=== PATIENT | male | born 1965 | race American Indian/Alaskan Native ===

== ENCOUNTER 2020-10-07 01:07 | Emergency (ER) | payer SELFPAY ==
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
[2020-10-07 03:13] LABS: Bilirubin,Urine NEG (Negative); Blood,Urine NEG (Negative); Color,Urine Yellow (Yellow); Mucus,Urine 1+ /HPF; Protein,Urine <15 mg/dL mg/dL (Negative); Urobilinogen,Urine < 2.0 mg/dL (<2.0)
[2020-10-07 03:18] LABS: Hematocrit 47.6 % (35.5-45.6); Hemoglobin 16.1 gm/dl (11.8-15.2); Mean Corpuscular HGB Conc 34 % (32-34); Mean Corpuscular Volume 87 fl (84-94); Platelet Count 225 K/mm3 (140-440); Red Blood Count 5.49 M/mm3 (3.65-5.03); Red Cell Distribution Width 15.1 % (13.2-15.2)
[2020-10-07 03:18] LABS: Amphetamine Screen,Urine PRESUMPTIVE NEGATIVE; Benzodiazepines Screen,Urine PRESUMPTIVE NEGATIVE; Cannabinoid Screen,Urine PRESUMPTIVE POSITIVE; Cocaine Screen,Urine PRESUMPTIVE NEGATIVE; Methadone Screen,Urine PRESUMPTIVE NEGATIVE; Opiate Screen,Urine PRESUMPTIVE NEGATIVE
[2020-10-07 03:20] LABS: BUN/Creatinine Ratio 13; Blood Urea Nitrogen 12 mg/dL (9-20); Calcium 9.4 mg/dL (8.4-10.2); Hemolysis Index 3
[2020-10-07 06:38] LABS: Basophils % (Manual) 0 % (0.0-1.8); Total Cells Counted 100
[2020-10-07 06:39] LABS: Anisocytosis Few; Platelet Estimate Consistent w Auto
[2020-10-07 09:20] VITALS: BP 123/58
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
== END 2020-10-07 13:25 | disposition home or self-care (01) ==
LOC: EEVIPCON 01:07 → ED 01:07
DX: F32.9 Major depressive disorder, single episode, unspecified (principal); F41.9 Anxiety disorder, unspecified; F17.200 Nicotine dependence, unspecified, uncomplicated; Z98.890 Other specified postprocedural states
CPT/HCPCS: 36415; 80048; 80307; 80320; 81001; 85007; 85025; G0480

== ENCOUNTER 2020-10-23 20:56 | Emergency (ER) | payer MEDICAID ==
[2020-10-23 21:55] VITALS: BP 108/75
--- NOTE | 2020-10-24 00:49 | Emergency Department Report ---
ED General Adult HPI - General Chief complaint: Extremity Problem,Nontraumatic Stated complaint: PAINFUL LEFT TOE INFECTION Time Seen by Provider: 10/23/20 23:21 Source: patient Mode of arrival: Ambulatory Limitations: No Limitations - History of Present Illness Initial comments: Patient complains of left great toe pain due to fungal foot infection x 1 day. He reports he has a chronic fungal infection and is seeking removal of the toenail. Patient states a few years ago he had his toenail removed at [facility] when the fungal foot infection was present. He denies any history of diabetes or other immunosuppressive conditions. He rates his current pain is a 8/10 in severity states it worsens with touch and pressure on the toe. He denies any fever/chills/sweats, decreased range of motion, redness, or numbness/tingling in the foot. - Related Data Previous Rx's Medication Instructions Recorded Last Taken Type Nicotine [Habitrol] 21 mg TD DAILY #30 patch 10/07/20 Unknown Rx Sertraline [Zoloft] 25 mg PO QDAY #30 tab 10/07/20 Unknown Rx traZODone [Desyrel] 50 mg PO QHS #30 tab 10/07/20 Unknown Rx Ciclopirox 1 drop TP QDAY 30 Days #1 solution 10/24/20 Unknown Rx traMADoL [Ultram 50 MG tab] 50 mg PO Q6HR PRN #10 tablet 10/24/20 Unknown Rx Allergies Allergy/AdvReac Type Severity Reaction Status Date / Time No Known Allergies Allergy Unverified 10/07/20 01:14 ED Review of Systems ROS: Stated complaint: PAINFUL LEFT TOE INFECTION Other details as noted in HPI Constitutional: denies: chills, diaphoresis, fever, malaise, weakness Endocrine: denies: excessive sweating Gastrointestinal: denies: nausea, vomiting Musculoskeletal: denies: joint swelling, arthralgia Skin: as per HPI. denies: rash, change in color Hematological/Lymphatic: denies: swollen glands ED Past Medical Hx - Past Medical History Previous Medical History?: Yes Hx Psychiatric Treatment: Yes (depression, anxiety) - Surgical History Additional Surgical History: back and neck - Social History Smoking Status: Current Every Day Smoker Substance Use Type: Marijuana - Medications Home Medications: Home Medications Medication Instructions Recorded Confirmed Last Taken Type Nicotine [Habitrol] 21 mg TD DAILY #30 patch 10/07/20 Unknown Rx Sertraline [Zoloft] 25 mg PO QDAY #30 tab 10/07/20 Unknown Rx traZODone [Desyrel] 50 mg PO QHS #30 tab 10/07/20 Unknown Rx Ciclopirox 1 drop TP QDAY 30 Days #1 solution 10/24/20 Unknown Rx traMADoL [Ultram 50 MG tab] 50 mg PO Q6HR PRN #10 tablet 10/24/20 Unknown Rx ED Physical Exam - General Limitations: No Limitations General appearance: alert, in no apparent distress - Head Head exam: Present: atraumatic, normocephalic - Eye Eye exam: Present: normal appearance - Neck Neck exam: Present: normal inspection - Respiratory Respiratory exam: Absent: respiratory distress - Cardiovascular Cardiovascular Exam: Present: regular rate - Extremities Exam Extremities exam: Present: other (Tenderness to palpation of the left great toe noted without swelling or erythema; there is a chronic onychomycosis noted to the left great toenail) - Back Exam Back exam: Present: full ROM - Neurological Exam Neurological exam: Present: alert, oriented X3, normal gait. Absent: motor sensory deficit - Psychiatric Psychiatric exam: Present: normal affect, normal mood - Skin Skin exam: Present: warm, dry, intact, normal color. Absent: rash, diaphoretic, erythema, pallor, ecchymosis ED Course Vital Signs 10/23/20 10/24/20 21:51 01:00 Temperature 97.7 F Pulse Rate 63 60 Respiratory 18 17 Rate Blood Pressure 108/75 O2 Sat by Pulse 96 99 Oximetry ED Medical Decision Making - Medical Decision Making Patient complains of left great toe pain due to fungal foot infection x 1 day. He reports he has a chronic fungal infection and is seeking removal of the toenail. Patient states a few years ago he had his toenail removed at [facility] when the fungal foot infection was present. He denies any history of diabetes or other immunosuppressive conditions. He rates his current pain is a 8/10 in s everity states it worsens with touch and pressure on the toe. He denies any fever/chills/sweats, decreased range of motion, redness, or numbness/tingling in the foot. Onychomycosis noted to the left great toenail. Prescription for ciclopirox given along with podiatry referral. Discussed signs and symptoms that should prompt immediate return to the emergency department in detail with patient who verbalizes understanding. He is well-appearing, his vitals are WNL, and he is stable for discharge home. Critical care attestation.: If time is entered above; I have spent that time in minutes in the direct care of this critically ill patient, excluding procedure time. ED Disposition Clinical Impression: Onychomycosis Disposition: TO HOME OR SELFCARE Is pt being admited?: No Condition: Stable Instructions: Fungal Nail Infection Prescriptions: Ciclopirox 1 drop TP QDAY 30 Days #1 solution traMADoL [Ultram 50 MG tab] 50 mg PO Q6HR PRN #10 tablet PRN Reason: Pain Referrals: KRISTA MCKEON DPM [Staff Physician] - 3-5 Days
== END 2020-10-24 01:00 | disposition home or self-care (01) ==
LOC: ED 20:56
DX: B35.1 Tinea unguium (principal); F32.9 Major depressive disorder, single episode, unspecified; F41.9 Anxiety disorder, unspecified; F17.200 Nicotine dependence, unspecified, uncomplicated; F12.10 Cannabis abuse, uncomplicated; Z79.899 Other long term (current) drug therapy
CPT/HCPCS: 99282